=== PATIENT | male | born 1935 | race Caucasian/White ===

== ENCOUNTER 2016-10-04 14:56 | Inpatient (IN) | payer OTHER ==
--- NOTE | ~2016-10-04 | HP ---
History And Physical [place] [id number] [facility]. [address] NAME: LISANDRO RIVERA : 37 STATUS : ADM Sea PAT#: [id number] AGE: 80 ADM/REG DATE : 10/04/16 MR#: [id number] REPORT SERV DATE: 10/05/16 DICTATED BY: DORETHA CORTES DATE: 10/04/16 REPORT STATUS : Draft TRANSCRIBED BY: MODL DATE: 10/04/16 DATE OF ADMISSION: 10/04/2016 CHIEF COMPLAINT: Short of breath for two weeks. HISTORY OF PRESENT ILLNESS: This is a 80-year-old male patient, who had a recent hospitalization at [facility] for four days for fluid removal for heart failure, was discharged on 09/01/2016. He stayed at home about a week and started getting short of breath for the last two weeks. Meanwhile, he had a followup with Dr. Hopson, his enthone solder stripper as a regular checkup. At that time, Dr. Hopson tried to change his torsemide to Bumex because of the increased shortness of breath. However later, he called the patient to correct instruction to be given. Initially, he told to take it twice a day and then he said kidney function is not very well working, so he needs to take it once a day. He has been following the instruction. In spite of all this medical treatment and compliance, he has not had any relief yet. He has had to use more pillows than before, now he is using four pillows. Normally, he uses two pillows at home and he is not able to get around even inside of the house and he decided to come to the hospital. Meanwhile, he had a quadruple bypass in 2002 and he has been followed by Dr. Ventura. However, Dr. Ventura left town and he was not able to get cardiologic evaluation along with his shortness of breath issue being developed recently. He decided to go to [facility]. Earlier this month, he had evaluation and establishment with Dr. Stringer, and I was able to review the echocardiogram result that was done in this month. On this system, it showed EF of 25%. Had a right ventricular dysfunction, moderate tricuspid regurg, and mild pulmonary hypertension. Subsequently, he was ordered to have nuclear test today, but he was not able to get around at all. He decided to come to the emergency room. He also has AICD implanted by Dr. Thomas Mason several years ago. He does not recall exactly when and why, and he does not recall exactly when was the interrogation done. He wished to change the EP battery inspector to Dr. Del Castillo in this hospital, but he has not met Dr. Del Castillo as an EP physician. His primary care physician is Dr. Amos Dean. He was never seen by the assembler finger buffs associate, but he was told that his kidney function is not normal on the last admission. Denies any fever or chills. He never had any paracentesis. Interestingly, he was told that he has some liver-caused skin boils and Dr. Hopson gave him Levaquin on last visit, which is about a week ago and he has been taking Levaquin. There is no nausea or vomiting. No urination problem. No constipation, no bleeding. REVIEW OF SYSTEMS: All systems reviewed and are negative. History And Physical [address] [address] NAME: LISANDRO RIVERA : 37 STATUS : ADM Sea PAT#: [id number] AGE: 80 ADM/REG DATE : 10/04/16 MR#: [id number] REPORT SERV DATE: 10/05/16 DICTATED BY: DORETHA CORTES DATE: 10/04/16 REPORT STATUS : Draft TRANSCRIBED BY: HUI DATE: 10/04/16 PAST MEDICAL HISTORY: 1. Ischemic cardiomyopathy with ejection fraction 25%, decompensated, hospitalization twice this month. 2. Coronary artery disease, status post bypass. 3. ICD insertion. 4. Diabetes mellitus, using Lantus 10 units at nighttime. 5. Liver failure. 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 6. History of atrial fibrillation and history of pacemaker insertion. 7. Chronic kidney disease. PAST SURGICAL HISTORY: Right shoulder surgery after an accident. SOCIAL HISTORY: Quit smoking 25 years ago. He denies any drinking alcohol. He used to work as electrician wiring. The patient lives with his . Does not require any cane or walking assistance. FAMILY HISTORY: Noncontributory. MEDICATIONS: Aspirin 81 mg once a day, Bumex 1 mg once a day, Coreg 12.5 mg twice a day, Plavix 75 mg once a day, coenzyme Q once a day, once a day, Levaquin 750 mg once a day, levothyroxine 25 mcg once a day, Prilosec 20 mg once a day, Paxil 20 mg every night, Pravachol 40 mg once a day. ALLERGIES: MORPHINE. PHYSICAL EXAMINATION: VITAL SIGNS: Blood pressure 100/62, pulse was 100, and saturation was 98% on room air, respiratory rate was 20. GENERAL APPEARANCE: He is slightly jaundiced and is a chronically looking ill gentlemen. HEENT: Pupils are equal and round. EOMI intact. Conjunctivae not anemic. NECK: Elevated jugular venous distention. No nodes palpable. LUNGS: Have crackles up to above the midchest on both sides. CARDIOVASCULAR: Has regular rhythm. I am not able to hear any murmur, but very distant heart sound. EXTREMITIES: There is no edema appreciated. SKIN: Has a skin scratch and some blood clot on the skin. LABORATORY: Showed sodium 134, potassium 4.9, BUN 53, chloride 2.43. WBC 7.7, hemoglobin 12.7, hematocrit 39.1, BNP 1457.9. Electrocardiogram showed ventricle-paced rhythm. X-ray showed left-sided pleural effusion. ASSESSMENT AND PLAN: History And Physical [address] [address] NAME: LISANDRO RIVERA : 37 STATUS : ADM Sea PAT#: [id number] AGE: 80 ADM/REG DATE : 10/04/16 MR#: [id number] REPORT SERV DATE: 10/05/16 DICTATED BY: DORETHA CORTES DATE: 10/04/16 REPORT STATUS : Draft TRANSCRIBED BY: MODL DATE: 10/04/16 1. Decompensated cardiomyopathy, ejection fraction 25% with decreased right heart function as well. 2. Acute kidney injury suspected on chronic kidney disease. Lab work is not available at this point. 3. Liver failure. 4. Dilates mellitus. The patient will be hospitalized for inpatient care for appropriate diuretic treatment. We will try to obtain medical record from the [facility] to compare his renal function. We will use IV diuretics. We will watch his kidney function and also, we will monitor his liver function. Overall, the patient has very poor prognosis. May need a palliative care consultation. The patient voiced that he wished to be DNR. EKL/MODL Doretha Cortes M.D. / [id number] CC: MD Amos Rendon M.D.
--- NOTE | ~2016-10-04 | CN ---
Consultation Report [facility] [address] [place]. [address] NAME: LISANDRO RIVERA : 37 STATUS : ADM IN [facility]#: [id number] AGE: 80 ADM/REG DATE : 10/04/16 MR#: [id number] REPORT SERV DATE: 10/05/16 DICTATED BY: CHARLETTE OLIVIA DATE: 10/05/16 REPORT STATUS : Draft TRANSCRIBED BY: MODIsa DATE: 10/05/16 ELECTROPHYSIOLOGY CONSULTATION DATE OF CONSULTATION: 10/05/2016 REASON FOR CONSULTATION: The patient with an ICD and history of PVCs, severe ischemic cardiomyopathy. HISTORY OF PRESENT ILLNESS: Mr. Rivera is a 80-year-old gentleman with a longstanding history of ischemic cardiomyopathy, status post [employer] ICD. He has an ejection fraction of 25%, class III congestive heart failure. He is currently DNR. He has had a history of cirrhotic liver disease in the past, and this has limited use of different antiarrhythmic medicines such as amiodarone. The patient was taking Mexitil, currently on hold. He came in with complaints of extreme weakness, fatigue, shortness of breath, and what sounds to be congestive heart failure. His BNP was 1457. He denied any defibrillator shocks. His telemetry does show mildly frequent PVCs. He is denying any significant palpitations. PAST MEDICAL HISTORY: Notable for: 1. Ischemic cardiomyopathy, ejection fraction 25%. 2. History of coronary disease, status post stent placement. 3. History of cirrhotic liver disease. 4. Acute on chronic renal insufficiency, current creatinine 2.37. 5. History of atrial fibrillation, does not take anticoagulation due to recurrent GI bleeding and is taking aspirin and Plavix. 6. History of diabetes. HOME MEDICATIONS: Include aspirin, Bumex, carvedilol, clopidogrel, levothyroxine. The patient was taking Mexitil, although currently not taking this medication. FAMILY HISTORY: Noncontributory. Negative for premature coronary disease. SOCIAL HISTORY: Negative currently for tobacco. History of tobacco use. REVIEW OF SYSTEMS: As noted above. All other systems reviewed and negative. PHYSICAL EXAMINATION: VITAL SIGNS: Blood pressure of 133/80, pulse of 90, respirations 16. GENERAL: Well developed, well nourished. HEENT: No icterus. Good dentition. NECK: Supple. No masses or thyromegaly. LUNGS: Breathing comfortably. No rales or wheezes. COR: Normal S1, S2. No S3 or S4. No murmurs, clicks, rubs. No JVD. ABD: Soft, nondistended, nontender. No hepatosplenomegaly. Consultation Report [place] [address] [place]. [address] NAME: LISANDRO RIVERA : 37 STATUS : ADM IN PAT#: [id number] AGE: 80 ADM/REG DATE : 10/04/16 MR#: [id number] REPORT SERV DATE: 10/05/16 DICTATED BY: CHARLETTE OLIVIA DATE: 10/05/16 REPORT STATUS : Draft TRANSCRIBED BY: MODL DATE: 10/05/16 EXT: No clubbing, cyanosis, or edema. Peripheral pulses 2+/= bilaterally. SKIN: Warm and dry. No visible lesions. MS: Chest wall without deformity. No obvious clavicular fractures. NEURO/PSYCH: Oriented X3. No anxiety or depression. DATA: EKG, undetermined atrial rhythm of ventricular pacing, occasional PVCs noted, no further interpretation. LABORATORY VALUES: Sodium 134, potassium 4.9, BUN of 53, creatinine of 2.43. White count of 7.7, hematocrit of 39, platelet count of 169. BNP 1457. Troponin less than 0.02. IMPRESSION: The patient with severe end-stage ischemic cardiomyopathy, as well as acute on chronic renal insufficiency and cirrhotic liver disease. He is DNR patient. He does have mildly frequent PVCs, not clear that it is significantly symptomatic. Treatment of the PVCs is very difficult. His renal insufficiency makes it difficult to give sotalol. His cirrhotic liver disease has made it difficult to use amiodarone. He was taking mexiletine at one point, this is primarily hepatically cleared. If he is truly symptomatic, we could consider restarting this medication. At this point, I would not recommend those medications and would just continue on his congestive heart failure medicines. TESSA/HUI Charlette Olivia M.D. / [id number] CC: MD Amos Rendon M.D.
--- NOTE | ~2016-10-04 | DS ---
Discharge Summary [facility] [address] [place]. [address] NAME: LISANDRO RIVERA : 37 STATUS : DIS IN PAT#: [id number] AGE: 81 ADM/REG DATE : 10/04/16 MR#: [id number] REPORT SERV DATE: 10/12/16 DICTATED BY: NAVYA BURT DATE: 10/11/16 REPORT STATUS : Draft TRANSCRIBED BY: MODL DATE: 10/11/16 ADMISSION DATE: 10/04/2016 DISCHARGE DATE: 10/08/2016 CONSULTATION: 1. Cardiology, Dr. Kwaku Portillo. 2. Hematology, Dr. Sherman Donahue. PROCEDURES: None. DISCHARGE DIAGNOSES: 1. Acute decompensated heart failure with reduced EF 25%. 2. History of coronary artery disease, status post cardiac bypass. 3. History of ICD insertion. 4. Insulin treated diabetes mellitus. 5. History of liver cirrhosis, secondary to amiodarone toxicity. 6. History of atrial fibrillation, not on chronic anticoagulation due to history of gastrointestinal bleed and coagulopathy. 7. Coagulopathy due to liver disease. 8. Hypertension. 9. Pancytopenia. 10.History of high frequency premature ventricular contractions with history of difficulty with amiodarone in the past and with sotalol due to renal insufficiency, on mexiletine on presentation. DISCHARGE CONDITION: Stable. HISTORY OF PRESENT ILLNESS: For detailed HPI, please make reference to Dr. Doretha Cortes, on 10/05/2016. In brief, this is a 81-year-old male with medical history of heart failure with reduced EF, coronary artery disease, status post CABG, ischemic cardiomyopathy, chronic kidney disease stage 3, who presented to the hospital with complaints of shortness of breath of two weeks duration. There was associated orthopnea, bilateral lower extremity swelling, and PND. In the ER, blood pressure was 100/62, pulse rate was 100, saturating 98% on room air. Physical exam was significant for bilateral lower pitting edema and diffuse crackles in all lung perkins. LABORATORY DATA: On presentation, BNP was 1457.9, creatinine was 2.4. A diagnosis of acute decompensated heart failure and acute kidney injury on chronic kidney disease stage 3 was made in the ER, the Hospitalist Service was contacted to admit the patient to the hospital for further evaluation. HOSPITAL COURSE: 1. Acute decompensated heart failure with reduced EF. The patient was started on Bumex drip with significant improvement in the shortness of breath. Cardiology was consulted given the patient's extensive cardiac history of ischemic cardiomyopathy, frequency PVCs, paroxysmal atrial fibrillation. With the treating machine operator's assistance, the Discharge Summary [facility] [address] [place]. [address] NAME: LISANDRO RIVERA : 37 STATUS : DIS IN PAT#: [id number] AGE: 81 ADM/REG DATE : 10/04/16 MR#: [id number] REPORT SERV DATE: 10/12/16 DICTATED BY: NAVYA BURT DATE: 10/11/16 REPORT STATUS : Draft TRANSCRIBED BY: HUI DATE: 10/11/16 patient's mexiletine for high frequency PVCs was held. During the course of this admission, the patient's Coreg was increased to 12.5 mg b.i.d. The patient has continued to have good response to diuresis. At the time of discharge, the patient has had a total net fluid loss of 8 L and has returned back to his dry weight of 79 kg. The patient was transitioned from Bumex drip to Bumex p.o. with continuous good response. The patient was advised to continue Bumex drip, continue Coreg, and followup. Continue all other cardiac medications as prescribed and followup with Cardiology and primary care physician as an outpatient. 2. Acute kidney injury and kidney disease stage 3. Etiology due to prerenal azotemia due to acute decompensated heart failure. The patient received IV diuresis as detailed above. Creatinine trended down from 2.4 to 1.6. The patient's last known baseline creatinine was 1.8. At the time of discharge, the patient's creatinine was 1.6, he was advised to continue follow up with Nephrology and primary care physician as an outpatient. 3. Paroxysmal atrial fibrillation. The patient had no evidence of RVR throughout this course of this admission. The patient's heart rate remains in the 80s to 90s throughout the course of admission. The patient is not on chronic anticoagulation due to history of gastrointestinal bleed and coagulopathy due to liver disease. 4. Pancytopenia. Hematology was consulted and recommended no bone marrow biopsy because patient's etiology of pancytopenia is more related to liver disease. At the time of discharge, the patient's platelet had improved from the low 60s and remained stable at 75,000. 5. History of liver cirrhosis. No evidence of acute decompensation during the course of this admission. Per patient's report, patient's primary traffic control signaler is Dr. Hopson at [place]. The patient to continue to follow up with Dr. Hopson as an outpatient. DISCHARGE MEDICATIONS: 1. Aspirin 81 mg p.o. daily. 2. Bumex 1 mg p.o. b.i.d. 3. Coreg 12.5 mg p.o. b.i.d. 4. Plavix 75 mg p.o. daily. 5. Coenzyme Q 30 mg p.o. daily. 6. Benadryl 25 mg p.o. p.r.n. 7. Levothyroxine 25 mcg p.o. daily. 8. Omeprazole 20 mg p.o. daily. 9. Paxil 20 mg p.o. at bedtime. 10.Pravastatin 40 mg p.o. at bedtime. 11.Mexiletine to be addressed by Cardiology prior to discharge. DISCHARGE DISPOSITION: Home with Home Health. DISCHARGE ACTIVITY: As tolerated. DISCHARGE DIET: ADA 1800 calorie diet. Greater than 35 minutes was used to prepare this patient's discharge, reconcile medication, and advise the patient on discharge plans and followup. Discharge Summary [address] [address] NAME: LISANDRO RIVERA : 37 STATUS : DIS IN PAT#: [id number] AGE: 81 ADM/REG DATE : 10/04/16 MR#: [id number] REPORT SERV DATE: 10/12/16 DICTATED BY: NAVYA BURT DATE: 10/11/16 REPORT STATUS : Draft TRANSCRIBED BY: MODIsa DATE: 10/11/16 ROSA MARIAO/HUI Navya Burt MD / [id number] CC: MD Amos Martin M.D.
--- NOTE | ~2016-10-04 | CN ---
Consultation Report [facility] [address] [facility] [place]. [address] NAME: LISANDRO RIVERA : 37 STATUS : ADM Sea PAT#: [id number] AGE: 80 ADM/REG DATE : 10/04/16 MR#: [id number] REPORT SERV DATE: 10/05/16 DICTATED BY: KWAKU PORTILLO DATE: 10/04/16 REPORT STATUS : Draft TRANSCRIBED BY: MODL DATE: 10/04/16 DATE OF CONSULTATION: Lisandro Rivera is a 80-year-old male, who is admitted with congestive heart failure. CVD PHYSICIAN: Satya Stringer M.D. REFERENCE SERVICES HEAD: Dr. Del Castillo. HISTORY OF PRESENT ILLNESS: Mr. Lisandro Rivera has had a long history of problems with ischemic cardiomyopathy with recurrent pulmonary congestion and symptoms. His most recent ejection fraction was 25%. He was undergoing evaluation by Dr. Del Castillo for high frequency PVCs, which felt to possibly further compromise his left ventricular function. Over the last two weeks, he began having increasing dyspnea and significant PND. He was sleeping on two to three pillows at night. REVIEW OF SYSTEMS: Negative for chest pain, chest discomfort, palpitations, syncope, presyncope, fever, chills, change in bowel habits, bruising. Rest is negative. PAST MEDICAL HISTORY: 1. Ischemic cardiomyopathy with an ejection fraction 25% on echocardiogram, 09/17/2016. Now enters with decompensation. 2. Coronary artery disease with no chest pain or chest discomfort. 3. AICD without discharge. 4. High frequency PVCs. I will defer to Dr. Del Castillo. He has had difficulty with amiodarone in the past and with sotalol, has renal insufficiency. They finally went and tried on mexiletine. 5. Renal insufficiency with a creatinine of 2.4. SOCIAL HISTORY: He does not drink. He is a former smoker. He has a sedentary activity. FAMILY HISTORY: Unremarkable for early heart disease. PHYSICAL EXAMINATION: VITAL SIGNS: Blood pressure is 120/78, pulse is 89. He is currently afebrile. Resting comfortably. RESPIRATIONS: Unlabored at 12. Bilateral breath sounds are heard. Precordium is quiet. HEART: S3 and S4 gallop are noted. ABDOMEN: Soft with active bowel sounds. EXTREMITIES: Warm with no edema. No petechiae are noted. LABORATORY EVALUATION: BNP is elevated at 1500. Renal insufficiency is present at 2.4. INR was elevated at 1.7. Telemetry shows underlying ventricular paced rhythm. Consultation Report [place] [address] [place]. [address] NAME: LISANDRO RIVERA : 37 STATUS : ADM Sea PAT#: [id number] AGE: 80 ADM/REG DATE : 10/04/16 MR#: [id number] REPORT SERV DATE: 10/05/16 DICTATED BY: KWAKU PORTILLO DATE: 10/04/16 REPORT STATUS : Draft TRANSCRIBED BY: HUI DATE: 10/04/16 ASSESSMENT: At this time, we will begin diuresis. We will defer treatment of frequent PVCs with Dr. Del Castillo. No evidence of ongoing ischemia. Defer diabetes management to hospitalist. BRYCE/HUI Kwaku Portillo M.D. / [id number] CC: MD Amos Rendon M.D.
--- NOTE | ~2016-10-04 | CN ---
Consultation Report [facility] [address] [place]. [address] NAME: LISANDRO RIVERA : 37 STATUS : ADM IN PAT#: [id number] AGE: 81 ADM/REG DATE : 10/04/16 MR#: [id number] REPORT SERV DATE: 10/11/16 DICTATED BY: FREDY ADAN DATE: 10/08/16 REPORT STATUS : Draft TRANSCRIBED BY: MODL DATE: 10/08/16 CONSULTATION DATE OF CONSULTATION: REASON FOR REFERRAL: Pancytopenia. HISTORY OF PRESENT ILLNESS: Mr. Rivera is a 81-year-old gentleman. He has known cirrhosis of the liver that is followed by Dr. Hopson and has been stable. He has a stable chronic kidney disease. He has ischemic cardiomyopathy with an ejection fraction of 25% that has been decompensated over the last few months. He has an ICD in place. Within this setting during this illness, he has developed worsening cytopenias. Today's white blood cell count is 2.9, hemoglobin 10.6, platelets 61,000. His platelets were 169,000 on admission. Hemoglobin today is 10.6, which was 12.7 on admission and the WBC is 2.9, which was 7.7 on admission. SOCIAL HISTORY: He lives in [place]. He does not use alcohol or tobacco. REVIEW OF SYSTEMS: A complete review of systems was negative except as per the HPI. FAMILY HISTORY: Remarkable for leukemia of unknown type in his mother. PHYSICAL EXAMINATION: GENERAL: Reveals a chronically ill-appearing gentleman, in no acute distress. VITAL SIGNS: 98.0, 176/61, 112, respirations 18. HEENT: Eye exam showed the lids and conjunctivae are without lesions. Mouth, the lips and gums show no abnormalities. There is poor dentition. The oropharynx is without thrush or stomatitis. NECK: Supple. There is no thyromegaly or mass. Lymph node survey shows no cervical, supraclavicular, or axillary nodes. CARDIOVASCULAR: Reveals regular rate and rhythm. There is trace edema. ABDOMEN: Distended consistent with possible ascites. I could not palpate the liver or spleen. SKIN: Shows some ecchymoses. NEUROLOGIC: Grossly intact. PSYCHIATRIC: Shows normal insight judgment with appropriate mood and affect. DATA REVIEW: I reviewed all of his laboratory studies, which were summarized above. I personally reviewed his chest x-ray, which shows cardiomegaly and left pleural effusion. He has an AICD in place. ASSESSMENT: New cytopenias. I suspect this is related to his cirrhosis, the stresses of his acute illness, and perhaps some worsening of liver disease related to right-sided heart failure. I do not feel he needs a bone marrow biopsy at this time. I think we can follow Consultation Report [address] [place]. [address] NAME: LISANDRO RIVERA : 37 STATUS : ADM IN PAT#: [id number] AGE: 81 ADM/REG DATE : 10/04/16 MR#: [id number] REPORT SERV DATE: 10/11/16 DICTATED BY: FREDY ADAN DATE: 10/08/16 REPORT STATUS : Draft TRANSCRIBED BY: HUI DATE: 10/08/16 him conservatively to see if he improves over time. I will follow with you. KENDALL/HUI Fredy Adan M.D. / [id number] CC: MD Amos Martin M.D. Chirag Patel, M.D.
[2016-10-04 13:43] LABS: BASOPHILS 0.4 %; BASOPHILS ABSOLUTE 0.03 10/3/uL (0.0-0.16); EOSINOPHILS 1.8 %; EOSINOPHILS ABSOLUTE 0.14 10/3/uL (0.0-0.53); HEMATOCRIT 39.1 % (40.0-51.0); HEMOGLOBIN 12.7 g/dL (13.6-17.8); IMMATURE GRANULOCYTES 0.3 %; IMMATURE GRANULOCYTES ABSOLUTE 0.02 10/3/uL (0.0-0.11); LYMPHOCYTES ABSOLUTE 0.92 10/3/uL (0.67-4.30); MANUAL DIFF NO %; MEAN CORPUS HGB CONC 32.5 g/dL (32.0-36.0); MEAN PLATELET VOLUME 11.2 fL (9.2-13.0); MONOCYTES 16.4 %; MONOCYTES ABSOLUTE 1.26 10/3/uL (0.21-1.20); NEUTROPHILS 69.1 %; NEUTROPHILS ABSOLUTE 5.32 10/3/uL (2.02-8.40); PLATELET COUNT 169 10/3/uL (150-400); RBC DISTRIBUTION WIDTH 16.5 % (12.0-16.0); RED CELL COUNT 5.08 10/6/uL (4.7-6.1); WHITE BLOOD CELLS 7.7 10/3/uL (4.5-10.5)
[2016-10-04 13:49] LABS: INTERNATIONAL NORMAL RATI 1.7 UNITS (-); PARTIAL THROMBO TIME 35.9 SEC (22.5-37.2); PROTIME (NOT ORD) 20.1 SEC (12.0-14.5)
[2016-10-04 13:59] LABS: CALCIUM, SERUM 8.7 MG/DL (8.5-10.4); CHEST PAIN PROFILE TAT 0 Hrs 22 Mins; CHLORIDE, SERUM 100 MMOL/L (96-112); CO2 (CARBON DIOXIDE) 21 MMOL/L (24-34); POTASSIUM, SERUM 4.9 MMOL/L (3.5-5.3); SODIUM, SERUM 134 MMOL/L (135-148); TROPONIN I <0.02 NG/ML (<0.05)
[2016-10-04 14:01] LABS: BUN (BLOOD UREA NITROGEN) 53 MG/DL (6-23); CREATININE 2.43 MG/DL (0.70-1.30); GFR AFRICAN AMERICAN 28 ML/MIN (>=60); GFR NON AFRICAN AMERICAN 25 ML/MIN (>=60); GLUCOSE, SERUM 82 MG/DL (60-99)
[~2016-10-04 14:56] MED LIST: AMB5 PO; ASAB PO; BETAPACE80 PO; C5 PO; CELEXA40 MG PO; COUMADIN7.5 MG PO; GLUCOPHAGE1000 MG PO; HYZAAR 50/12.51 TAB PO; LAN25 PO; LEVOTHYROXIN25 MCG PO; PRAVACHOL40 MG PO; PRILO PO; VITE PO
[2016-10-04] MEDS ORDERED: PLAVIX PO (14:59)
[2016-10-04] MEDS ORDERED: PRILO PO (14:59)
[2016-10-04] MEDS ORDERED: LEVOTHYROXIN25 MCG PO (14:59)
[2016-10-04] MEDS ORDERED: PRAVACHOL40 MG PO (15:00)
[2016-10-04] MEDS ORDERED: PAX20 PO (15:00)
[2016-10-04] MEDS ORDERED: MEXILETINE PO (15:01)
[2016-10-04] MEDS ORDERED: LEVAQUIN750 MG PO (15:01)
[2016-10-04] MEDS ORDERED: COREG12 PO (15:02)
[2016-10-04] MEDS ORDERED: ASAB PO (15:02)
[2016-10-04] MEDS ORDERED: BEN25 PO (15:03)
[2016-10-04] MEDS ORDERED: CO-Q-10 PO (15:03)
[2016-10-04] MEDS ORDERED: BUM1 PO (15:03)
[2016-10-05 09:09] LABS: FREE T4 1.84 NG/DL (0.76-1.46); ULTRASENSITIVE TSH 5.64 MCIU/ML (0.358-3.740)
[2016-10-05 16:40] LABS: BASOPHILS 0.2 %; BASOPHILS ABSOLUTE 0.01 10/3/uL (0.0-0.16); EOSINOPHILS 2.2 %; HEMATOCRIT 36.6 % (40.0-51.0); HEMOGLOBIN 11.8 g/dL (13.6-17.8); IMMATURE GRANULOCYTES 0.2 %; IMMATURE GRANULOCYTES ABSOLUTE 0.01 10/3/uL (0.0-0.11); LYMPHOCYTES 11.2 %; LYMPHOCYTES ABSOLUTE 0.52 10/3/uL (0.67-4.30); MEAN CORPUS HGB CONC 32.2 g/dL (32.0-36.0); MEAN CORPUSCULAR HEMOGLOB 24.9 pg (26.0-34.0); MEAN CORPUSCULAR VOLUME 77.4 fL (80-100); MEAN PLATELET VOLUME 9.9 fL (9.2-13.0); MONOCYTES 12.9 %; NEUTROPHILS 73.3 %; RBC DISTRIBUTION WIDTH 16.3 % (12.0-16.0); RED CELL COUNT 4.73 10/6/uL (4.7-6.1)
[2016-10-05 16:43] LABS: MANUAL DIFF NO %; PLATELET COUNT 111 10/3/uL (150-400); WHITE BLOOD CELLS 4.6 10/3/uL (4.5-10.5)
[2016-10-05 16:51] LABS: INTERNATIONAL NORMAL RATI 1.7 UNITS (-)
[2016-10-05 16:54] LABS: ALBUMIN 3.6 G/DL (3.5-5.0); ALKALINE PHOSPHATASE 68 U/L (45-117); BUN (BLOOD UREA NITROGEN) 55 MG/DL (6-23); CALCIUM, SERUM 8.5 MG/DL (8.5-10.4); CHLORIDE, SERUM 97 MMOL/L (96-112); CO2 (CARBON DIOXIDE) 25 MMOL/L (24-34); CREATININE 2.58 MG/DL (0.70-1.30); DIRECT BILIRUBIN 0.4 MG/DL (0.0-0.4); GFR AFRICAN AMERICAN 26 ML/MIN (>=60); GFR NON AFRICAN AMERICAN 23 ML/MIN (>=60); GLUCOSE, SERUM 119 MG/DL (60-99); INDIRECT BILIRUBIN(NOT ORDER) 0.5 MG/DL (0.1-0.9); PHOSPHORUS, SERUM 3.7 MG/DL (2.5-4.5); POTASSIUM, SERUM 4.1 MMOL/L (3.5-5.3); SGOT(AST) 48 U/L (5-40); SGPT(ALT) 58 U/L (5-65); SODIUM, SERUM 134 MMOL/L (135-148); TOTAL BILIRUBIN 0.9 MG/DL (0-1.2); TOTAL PROTEIN 8.3 G/DL (6.0-8.5)
[2016-10-06 06:54] LABS: BASOPHILS 0.3 %; BASOPHILS ABSOLUTE 0.01 10/3/uL (0.0-0.16); EOSINOPHILS 2.8 %; EOSINOPHILS ABSOLUTE 0.09 10/3/uL (0.0-0.53); IMMATURE GRANULOCYTES 0.3 %; IMMATURE GRANULOCYTES ABSOLUTE 0.01 10/3/uL (0.0-0.11); LYMPHOCYTES 18.4 %; LYMPHOCYTES ABSOLUTE 0.59 10/3/uL (0.67-4.30); MEAN CORPUS HGB CONC 32.4 g/dL (32.0-36.0); MEAN CORPUSCULAR VOLUME 77.3 fL (80-100); MEAN PLATELET VOLUME 10.4 fL (9.2-13.0); MONOCYTES 13.4 %; MONOCYTES ABSOLUTE 0.43 10/3/uL (0.21-1.20); NEUTROPHILS 64.8 %; NEUTROPHILS ABSOLUTE 2.08 10/3/uL (2.02-8.40); RBC DISTRIBUTION WIDTH 16.6 % (12.0-16.0); WHITE BLOOD CELLS 3.2 10/3/uL (4.5-10.5)
[2016-10-06 06:55] LABS: INTERNATIONAL NORMAL RATI 1.6 UNITS (-); PROTIME (NOT ORD) 18.5 SEC (12.0-14.5)
[2016-10-06 06:56] LABS: PLATELET COUNT 75 10/3/uL (150-400)
[2016-10-06 06:57] LABS: MANUAL DIFF NO %
[2016-10-06 07:15] LABS: ALBUMIN 3.3 G/DL (3.5-5.0); ALKALINE PHOSPHATASE 67 U/L (45-117); BUN (BLOOD UREA NITROGEN) 56 MG/DL (6-23); CALCIUM, SERUM 8.4 MG/DL (8.5-10.4); CHLORIDE, SERUM 99 MMOL/L (96-112); CO2 (CARBON DIOXIDE) 26 MMOL/L (24-34); CREATININE 2.24 MG/DL (0.70-1.30); DIRECT BILIRUBIN 0.3 MG/DL (0.0-0.4); GFR AFRICAN AMERICAN 31 ML/MIN (>=60); GFR NON AFRICAN AMERICAN 27 ML/MIN (>=60); GLUCOSE, SERUM 148 MG/DL (60-99); INDIRECT BILIRUBIN(NOT ORDER) 0.3 MG/DL (0.1-0.9); PHOSPHORUS, SERUM 3.3 MG/DL (2.5-4.5); POTASSIUM, SERUM 3.7 MMOL/L (3.5-5.3); SGOT(AST) 39 U/L (5-40); SGPT(ALT) 49 U/L (5-65); SODIUM, SERUM 135 MMOL/L (135-148); TOTAL BILIRUBIN 0.6 MG/DL (0-1.2); TOTAL PROTEIN 7.6 G/DL (6.0-8.5)
[2016-10-06 07:22] LABS: PLATELET ESTIMATE DEC (ADEQUATE)
[2016-10-06 07:24] LABS: POLYCHROMASIA 1+ (2-5/OIF) (0-1/OIF)
[2016-10-07 04:50] LABS: ALBUMIN 3.2 G/DL (3.5-5.0); BUN (BLOOD UREA NITROGEN) 52 MG/DL (6-23); CALCIUM, SERUM 8.2 MG/DL (8.5-10.4); CHLORIDE, SERUM 100 MMOL/L (96-112); CO2 (CARBON DIOXIDE) 28 MMOL/L (24-34); CREATININE 1.89 MG/DL (0.70-1.30); GFR AFRICAN AMERICAN 38 ML/MIN (>=60); GFR NON AFRICAN AMERICAN 33 ML/MIN (>=60); GLUCOSE, SERUM 121 MG/DL (60-99); PHOSPHORUS, SERUM 3.2 MG/DL (2.5-4.5); POTASSIUM, SERUM 3.3 MMOL/L (3.5-5.3); SODIUM, SERUM 138 MMOL/L (135-148)
[2016-10-07 04:54] LABS: HEMATOCRIT 31.2 % (40.0-51.0); HEMOGLOBIN 10.1 g/dL (13.6-17.8); MEAN CORPUS HGB CONC 32.4 g/dL (32.0-36.0); MEAN CORPUSCULAR VOLUME 77.2 fL (80-100); MEAN PLATELET VOLUME 10.5 fL (9.2-13.0); PLATELET COUNT 69 10/3/uL (150-400); RBC DISTRIBUTION WIDTH 16.4 % (12.0-16.0); RED CELL COUNT 4.04 10/6/uL (4.7-6.1); WHITE BLOOD CELLS 2.8 10/3/uL (4.5-10.5)
[2016-10-07 05:10] LABS: MANUAL DIFF YES %
[2016-10-07 06:21] LABS: EOSINOPHILS 2 %; EOSINOPHILS ABSOLUTE (CALC) 0.06 10/3/uL (0.0-0.53); LYMPHOCYTES 13 %; LYMPHOCYTES ABSOLUTE (CALC) 0.36 10/3/uL (0.67-4.30); MONOCYTES 4 %; MONOCYTES ABSOLUTE (CALC) 0.11 10/3/uL (0.21-1.20); NEUTROPHILS ABSOLUTE (CALC) 2.27 10/3/uL (2.02-8.40); PLATELET ESTIMATE DEC (ADEQUATE); SEGMENTED NEUTROPHIL (0) 81 %; TOTAL NUCLEATED CELLS 100
[2016-10-07 06:22] LABS: HYPOCHROMIA 1+ (3-10/OIF) (0-2/OIF); POLYCHROMASIA 1+ (2-5/OIF) (0-1/OIF)
[2016-10-08 04:12] LABS: A/G RATIO 0.8 (0.7-1.9); ALBUMIN 3.4 G/DL (3.5-5.0); ALKALINE PHOSPHATASE 75 U/L (45-117); BUN (BLOOD UREA NITROGEN) 51 MG/DL (6-23); CALCIUM, SERUM 8.4 MG/DL (8.5-10.4); CHLORIDE, SERUM 100 MMOL/L (96-112); CO2 (CARBON DIOXIDE) 30 MMOL/L (24-34); CREATININE 1.96 MG/DL (0.70-1.30); GFR AFRICAN AMERICAN 37 ML/MIN (>=60); GFR NON AFRICAN AMERICAN 32 ML/MIN (>=60); GLOBULIN 4.5 G/DL (2.5-4.1); SGOT(AST) 21 U/L (5-40); SGPT(ALT) 32 U/L (5-65); SODIUM, SERUM 140 MMOL/L (135-148); TOTAL BILIRUBIN 0.6 MG/DL (0-1.2); TOTAL PROTEIN 7.9 G/DL (6.0-8.5)
[2016-10-08 04:13] LABS: BASOPHILS 0 %; EOSINOPHILS 2.4 %; EOSINOPHILS ABSOLUTE 0.07 10/3/uL (0.0-0.53); GLUCOSE, SERUM 170 MG/DL (60-99); HEMATOCRIT 32.5 % (40.0-51.0); HEMOGLOBIN 10.6 g/dL (13.6-17.8); LYMPHOCYTES 16.6 %; LYMPHOCYTES ABSOLUTE 0.48 10/3/uL (0.67-4.30); MANUAL DIFF NO %; MEAN CORPUS HGB CONC 32.6 g/dL (32.0-36.0); MEAN CORPUSCULAR HEMOGLOB 25.6 pg (26.0-34.0); MEAN CORPUSCULAR VOLUME 78.5 fL (80-100); MEAN PLATELET VOLUME 10.8 fL (9.2-13.0); MONOCYTES 12.8 %; MONOCYTES ABSOLUTE 0.37 10/3/uL (0.21-1.20); NEUTROPHILS 68.2 %; NEUTROPHILS ABSOLUTE 1.97 10/3/uL (2.02-8.40); PLATELET COUNT 61 10/3/uL (150-400); POTASSIUM, SERUM 4.2 MMOL/L (3.5-5.3); RBC DISTRIBUTION WIDTH 16.4 % (12.0-16.0); RED CELL COUNT 4.14 10/6/uL (4.7-6.1); WHITE BLOOD CELLS 2.9 10/3/uL (4.5-10.5)
[2016-10-08 06:30] LABS: PLATELET ESTIMATE DEC (ADEQUATE)
[2016-10-09 04:50] LABS: BASOPHILS 0 %; EOSINOPHILS 2.7 %; HEMATOCRIT 34.4 % (40.0-51.0); HEMOGLOBIN 10.8 g/dL (13.6-17.8); LYMPHOCYTES 14.3 %; LYMPHOCYTES ABSOLUTE 0.53 10/3/uL (0.67-4.30); MANUAL DIFF NO %; MEAN CORPUS HGB CONC 31.4 g/dL (32.0-36.0); MEAN CORPUSCULAR HEMOGLOB 24.7 pg (26.0-34.0); MEAN CORPUSCULAR VOLUME 78.5 fL (80-100); MEAN PLATELET VOLUME 10.6 fL (9.2-13.0); MONOCYTES 13.5 %; NEUTROPHILS 69.5 %; NEUTROPHILS ABSOLUTE 2.58 10/3/uL (2.02-8.40); PLATELET COUNT 65 10/3/uL (150-400); RBC DISTRIBUTION WIDTH 16.3 % (12.0-16.0); RED CELL COUNT 4.38 10/6/uL (4.7-6.1); WHITE BLOOD CELLS 3.7 10/3/uL (4.5-10.5)
[2016-10-09 05:05] LABS: ALBUMIN 3.4 G/DL (3.5-5.0); BUN (BLOOD UREA NITROGEN) 44 MG/DL (6-23); CHLORIDE, SERUM 98 MMOL/L (96-112); CO2 (CARBON DIOXIDE) 31 MMOL/L (24-34); CREATININE 1.69 MG/DL (0.70-1.30); GFR AFRICAN AMERICAN 44 ML/MIN (>=60); GFR NON AFRICAN AMERICAN 38 ML/MIN (>=60); GLUCOSE, SERUM 133 MG/DL (60-99); POTASSIUM, SERUM 4.1 MMOL/L (3.5-5.3); SODIUM, SERUM 140 MMOL/L (135-148)
[2016-10-09 05:43] LABS: PLATELET ESTIMATE DEC (ADEQUATE)
[2016-10-09 05:44] LABS: ANISOCYTOSIS 1+ (5-10/OIF) (0-5/OIF); RBC MORPHOLOGY ABN (NORMAL)
[2016-10-10 04:06] LABS: BASOPHILS 0.2 %; BASOPHILS ABSOLUTE 0.01 10/3/uL (0.0-0.16); EOSINOPHILS 3.2 %; EOSINOPHILS ABSOLUTE 0.15 10/3/uL (0.0-0.53); HEMATOCRIT 34.1 % (40.0-51.0); HEMOGLOBIN 10.9 g/dL (13.6-17.8); IMMATURE GRANULOCYTES 0.2 %; IMMATURE GRANULOCYTES ABSOLUTE 0.01 10/3/uL (0.0-0.11); LYMPHOCYTES 12.8 %; MEAN CORPUSCULAR HEMOGLOB 24.8 pg (26.0-34.0); MEAN CORPUSCULAR VOLUME 77.7 fL (80-100); MEAN PLATELET VOLUME 10.4 fL (9.2-13.0); MONOCYTES 11.8 %; MONOCYTES ABSOLUTE 0.55 10/3/uL (0.21-1.20); NEUTROPHILS 71.8 %; NEUTROPHILS ABSOLUTE 3.35 10/3/uL (2.02-8.40); PLATELET COUNT 67 10/3/uL (150-400); RBC DISTRIBUTION WIDTH 16.4 % (12.0-16.0); RED CELL COUNT 4.39 10/6/uL (4.7-6.1); WHITE BLOOD CELLS 4.7 10/3/uL (4.5-10.5)
[2016-10-10 04:08] LABS: MANUAL DIFF NO %
[2016-10-10 04:16] LABS: ALBUMIN 3.5 G/DL (3.5-5.0); CALCIUM, SERUM 8.4 MG/DL (8.5-10.4); CHLORIDE, SERUM 93 MMOL/L (96-112); CO2 (CARBON DIOXIDE) 33 MMOL/L (24-34); CREATININE 1.63 MG/DL (0.70-1.30); GFR AFRICAN AMERICAN 46 ML/MIN (>=60); GFR NON AFRICAN AMERICAN 39 ML/MIN (>=60); PHOSPHORUS, SERUM 2.6 MG/DL (2.5-4.5); POTASSIUM, SERUM 3.6 MMOL/L (3.5-5.3); SODIUM, SERUM 136 MMOL/L (135-148)
[2016-10-10 04:21] LABS: BUN (BLOOD UREA NITROGEN) 38 MG/DL (6-23); GLUCOSE, SERUM 214 MG/DL (60-99)
[2016-10-10 04:23] LABS: ANISOCYTOSIS 1+ (5-10/OIF) (0-5/OIF); PLATELET ESTIMATE DEC (ADEQUATE); RBC MORPHOLOGY ABN (NORMAL)
[2016-10-11 05:02] LABS: BASOPHILS 0.2 %; BASOPHILS ABSOLUTE 0.01 10/3/uL (0.0-0.16); EOSINOPHILS 3.9 %; EOSINOPHILS ABSOLUTE 0.19 10/3/uL (0.0-0.53); HEMATOCRIT 36.8 % (40.0-51.0); HEMOGLOBIN 11.7 g/dL (13.6-17.8); IMMATURE GRANULOCYTES 0.2 %; IMMATURE GRANULOCYTES ABSOLUTE 0.01 10/3/uL (0.0-0.11); LYMPHOCYTES 17.6 %; LYMPHOCYTES ABSOLUTE 0.85 10/3/uL (0.67-4.30); MEAN CORPUS HGB CONC 31.8 g/dL (32.0-36.0); MEAN CORPUSCULAR HEMOGLOB 24.5 pg (26.0-34.0); MEAN CORPUSCULAR VOLUME 77.1 fL (80-100); MEAN PLATELET VOLUME 10.5 fL (9.2-13.0); MONOCYTES 11.8 %; MONOCYTES ABSOLUTE 0.57 10/3/uL (0.21-1.20); NEUTROPHILS 66.3 %; NEUTROPHILS ABSOLUTE 3.21 10/3/uL (2.02-8.40); PLATELET COUNT 75 10/3/uL (150-400); RBC DISTRIBUTION WIDTH 16.2 % (12.0-16.0); RED CELL COUNT 4.77 10/6/uL (4.7-6.1); WHITE BLOOD CELLS 4.8 10/3/uL (4.5-10.5)
[2016-10-11 05:12] LABS: MANUAL DIFF NO %
[2016-10-11 05:19] LABS: ALBUMIN 3.5 G/DL (3.5-5.0); BUN (BLOOD UREA NITROGEN) 37 MG/DL (6-23); CHLORIDE, SERUM 89 MMOL/L (96-112); CO2 (CARBON DIOXIDE) 33 MMOL/L (24-34); CREATININE 1.62 MG/DL (0.70-1.30); GFR AFRICAN AMERICAN 46 ML/MIN (>=60); GFR NON AFRICAN AMERICAN 40 ML/MIN (>=60); POTASSIUM, SERUM 4.2 MMOL/L (3.5-5.3); SODIUM, SERUM 134 MMOL/L (135-148)
[2016-10-11 05:20] LABS: GLUCOSE, SERUM 158 MG/DL (60-99); PHOSPHORUS, SERUM 3.5 MG/DL (2.5-4.5)
[2016-10-11 05:39] LABS: INTERNATIONAL NORMAL RATI 1.3 UNITS (-)
[2016-10-11 06:28] LABS: ANISOCYTOSIS 1+ (5-10/OIF) (0-5/OIF); MICROCYTES 1+ (5-10/OIF) (0-5/OIF); PLATELET ESTIMATE DEC (ADEQUATE); RBC MORPHOLOGY ABN (NORMAL)
[2016-10-11] MEDS ORDERED: DSS PO (11:10)
[2016-10-11] MEDS ORDERED: SENTAB PO (11:11)
== END 2016-10-11 18:16 | disposition home health service (06) | DRG 291 ==
LOC: ER 14:56 → 5NO 15:20
PROVIDERS: Emergency Medicine; Hospitalist; Internal Medicine Cardiovascular Disease
PROC: 4B02XTZ Measurement of Cardiac Defibrillator, External Approach (ICD-10-PCS; principal; 2016-10-05)
DX: I13.0 Hypertensive heart and chronic kidney disease with heart failure and stage 1 through stage 4 chronic kidney disease, or unspecified chronic kidney disease (principal); I50.23 Acute on chronic systolic (congestive) heart failure; N18.4 Chronic kidney disease, stage 4 (severe); D61.818 Other pancytopenia; D69.6 Thrombocytopenia, unspecified; E11.22 Type 2 diabetes mellitus with diabetic chronic kidney disease; N17.9 Acute kidney failure, unspecified; K74.60 Unspecified cirrhosis of liver; I25.5 Ischemic cardiomyopathy; Z66 Do not resuscitate; I49.3 Ventricular premature depolarization; Z79.82 Long term (current) use of aspirin; Z79.02 Long term (current) use of antithrombotics/antiplatelets; Z95.810 Presence of automatic (implantable) cardiac defibrillator; Z87.891 Personal history of nicotine dependence; Z79.4 Long term (current) use of insulin; E87.6 Hypokalemia; I48.0 Paroxysmal atrial fibrillation
CPT/HCPCS: 71020; 76775; 80048; 80053; 80069; 80076; 82962; 83036; 83735; 83880; 84439; 84443; 84484; 85025; 85610; 85730; 87040; 93005; 93975; 99285; A9270-GY